=== PATIENT | male | born 1980 | race Two or more races ===

== ENCOUNTER 2022-03-14 11:51 | Day surgery (SDC) | payer MEDICAID ==
[2022-03-12 11:51] LABS: Basophils # (auto) 0 10 ^3/uL (0-0.2); Basophils % (auto) 0.8 % (0.0-2.0); Eosinophils # (auto) 0.1 10 ^3/uL (0-0.8); Eosinophils % (auto) 2.1 % (0.0-7.0); Hematocrit 43.6 % (41.0-53.0); Hemoglobin 14.8 g/dL (13.5-17.5); Lymphocytes # (auto) 2.1 10 ^3/uL (0.4-5.4); Lymphocytes % (auto) 38.1 % (10.0-50.0); Mean Corpuscular Hemoglobin 28.5 pg (28.0-32.0); Mean Corpuscular Hgb Conc. 33.9 g/dL (32.0-36.0); Mean Corpuscular Volume 84.2 fL (80.0-100.0); Monocytes # (auto) 0.6 10 ^3/uL (0-1.3); Monocytes % (auto) 11.2 % (0.0-12.0); Neutrophils # (auto) 2.6 10 ^3/uL (1.6-8.6); Neutrophils % (auto) 47.8 % (37.0-80.0); Red Blood Cells 5.18 10^6/uL (4.5-5.90); Red Cell Distribution Width 13.2 % (11.8-14.3); White Blood Cell 5.5 10^3/uL (4.4-10.8)
[2022-03-12 11:53] LABS: Urine Bacteria FEW /hpf (None Seen); Urine Blood Negative /uL (Negative); Urine Mucus FEW (None Seen); Urine Specific Gravity 1.028 (1.001-1.035); Urine WBC 1 /hpf (0 - 3)
[2022-03-12 12:18] LABS: Albumin 4.1 g/dL (3.4-5.0); BUN/Creatinine Ratio 13.3; Calcium 8.6 mg/dL (8.5-10.1); INR 0.99 (0.9-1.15); Partial Thromboplastin Time 26.6 sec (24.6-33.4); Potassium 3.6 mmol/L (3.5-5.1)
[2022-03-12 12:20] LABS: Bilirubin, Total 0.6 mg/dL (0.2-1.0); Total Protein 8.1 g/dL (6.4-8.2)
[~2022-03-14] VITALS: Ht 177.8 cm; Wt 79.4 kg
[~2022-03-14 11:51] MED LIST: IBUP800T27 PO
[2022-03-14] MEDS ORDERED: ceFAZolin 1GM/50ML 100 ML IV ONE (12:08)
[2022-03-14] MEDS ORDERED: fentaNYL CITRATE 100 MCG/2 ML VL ONE (13:29)
[2022-03-14] MEDS ORDERED: MEPERIDINE HCL (25 MG/ML) 1ML VIAL ONE (13:29)
[2022-03-14] MEDS ORDERED: MIDAZOLAM HCL 2MG/2ML 2ml VIAL (1mg/ml) ONE (13:29)
[2022-03-14] MEDS ORDERED: BUPIVACAINE 0.25% INJ 50ML VIAL IJ ONE (13:30)
[2022-03-14] MEDS ORDERED: LIDOCAINE 1%-Mpf/Epinephrine 1:200,000 IJ ONE (13:30)
[2022-03-14] MEDS ORDERED: DexAMETHasone SOD PHOS 10MG/1ML VIAL INJ ONE (13:58)
[2022-03-14] MEDS ORDERED: PROPOFOL 10 MG/ML 20 ML IV ONE (13:58)
[2022-03-14] MEDS ORDERED: LABETALOL HCL 5 MG/ML 4ML SYRINGE IV PRN (14:00)
[2022-03-14] MEDS ORDERED: HYDROmorphone HCL 2 MG/ML VL/or syr IV PRN (14:00)
[2022-03-14] MEDS ORDERED: MIDAZOLAM HCL 2MG/2ML 2ml VIAL (1mg/ml) IV PRN (14:00)
[2022-03-14] MEDS ORDERED: ePHEDrine SULFATE 50 MG/ML AMP IV PRN (14:00)
[2022-03-14] MEDS ORDERED: MORPHINE SULFATE 4 MG/ML SYR/VIAL IV PRN (14:00)
[2022-03-14] MEDS ORDERED: ONDANSETRON HCL 4 MG/2 ML VIAL IV PRN (14:00)
[2022-03-14 15:05] VITALS: BP 121/76
== END 2022-03-14 15:20 | disposition home or self-care (01) ==
LOC: SUR 11:51
PROVIDERS: ATTEND Surgery
DX: D17.21 Benign lipomatous neoplasm of skin and subcutaneous tissue of right arm (principal); Z20.822 Contact with and (suspected) exposure to COVID-19
CPT/HCPCS: 24071; 36415; 80053; 81001; 85025; 85610; 85730; 86850; 86900; 86901; 88305; J0690; J1100; J2001; J2175; J2250; J2704; J3010; J3490; U0003